=== PATIENT | female | born 1995 | race Asian ===

== ENCOUNTER 2022-10-18 16:42 | Emergency (ER) | payer OTHER ==
[~2022-10-18] VITALS: Ht 162.6 cm; Wt 69.6 kg
[2022-10-18 16:51] VITALS: BP 112/78
[2022-10-18] MEDS ORDERED: LIDOcaine 1% W/epiNEPHrine 1:100,000 20ml vial SQ ONE (17:00)
[2022-10-18] MEDS ORDERED: TETanus/Pertussis (Acell)/Diphther VAC/PF (Tdap-Adult) 0.5ml syringe IMVAC ONE (17:00)
--- NOTE | 2022-10-18 17:05 | NUR ---
Pt in [facility], [facility] 1 hr ago Pt cut R index finger. Pain 3/10 constant throbbing pain. Pt educated to POC, Pt in agreement. Pending providers eval and treatment.
[2022-10-18] MEDS ORDERED: LIDOCAINE 2%/EPI 1:100,000 inj. Multi-dose 20 ML VIAL SQ ONE (17:10)
[2022-10-18] MEDS ORDERED: LIDOCAINE 2% w/EPI 1:200,000 multi-dose 20ml VIAL SQ ONE (17:20)
[2022-10-18] MEDS ORDERED: CEPH500C81 PO (18:10)
== END 2022-10-18 18:13 | disposition home or self-care (01) ==
LOC: ER 16:42
DX: S61.211A Laceration without foreign body of left index finger without damage to nail, initial encounter (principal); Z91.018 Allergy to other foods; W25.XXXA Contact with sharp glass, initial encounter; Y93.89 Activity, other specified; Y92.89 Other specified places as the place of occurrence of the external cause; Y99.8 Other external cause status
CPT/HCPCS: 12002; 99283; J7030; A6449